=== PATIENT | female | born 1985 | race Two or more races ===

== ENCOUNTER 2019-03-20 08:58 | Inpatient (IN) | payer OTHER ==
[~2019-03-20] VITALS: Ht 162.6 cm; Wt 82.6 kg
[2019-03-29] MEDS ORDERED: PRENATAL TABLE1 EAC1 PO (09:05)
== END 2019-03-31 11:46 | DRG 807 ==
LOC: LDR 14:00 → OB/GYN 03-29 13:13 → LDR 04-09 14:00
PROVIDERS: ADMIT Obstetrics & Gynecology
PROC: 10E0XZZ Delivery of Products of Conception, External Approach (ICD-10-PCS; principal; 2019-03-29)
PROC: 0KQM0ZZ Repair Perineum Muscle, Open Approach (ICD-10-PCS; 2019-03-29)
PROC: 4A0HXFZ Measurement of Products of Conception, Cardiac Rhythm, External Approach (ICD-10-PCS; 2019-03-29)
DX: O70.1 Second degree perineal laceration during delivery (principal); Z37.0 Single live birth; Z3A.38 38 weeks gestation of pregnancy